=== PATIENT | male | born 1960 | race Caucasian/White ===

== ENCOUNTER 2017-09-25 17:31 | Emergency (ER) | payer SELFPAY ==
[2017-09-25 17:32] VITALS: BP 152/84; PULSE 75; RESP 16; TEMP 98.8; O2SAT 99
--- NOTE | 2017-09-25 18:29 | RADRPT ---
EXAM DATE/TIME: 09/25/2017 18:07 [place] COMPARISON: No previous studies available for comparison. INDICATIONS : Cough, sneezing and flu symptoms. MEDICAL HISTORY : None. SURGICAL HISTORY : Coronary artery stent. ENCOUNTER: Initial ACUITY: 1 day PAIN SCORE: 0/10 LOCATION: Bilateral chest FINDINGS: PA and lateral views of the chest demonstrate the lungs to be symmetrically aerated without evidence of mass, infiltrate or effusion. The cardiomediastinal contours are unremarkable. Osseous structure s are intact. CONCLUSION: 1. No active disease. Stephen Sebastian MD on September 25, 2017 at 18:25 Board Certified Radiologist. This report was verified electronically.
[2017-09-25 18:45] LABS: AUTOMATED NEUTROPHIL # 2.2 TH/MM3 (1.8-7.7); BASOPHIL % 0.8 % (0.0-2.0); EOSINOPHIL # 0.2 TH/MM3 (0-0.4); HEMATOCRIT 47.1 % (39.0-51.0); HEMOGLOBIN 16.8 GM/DL (13.0-17.0); LYMPH % 37.9 % (9.0-44.0); LYMPHOCYTE # 1.9 TH/MM3 (1.0-4.8); MEAN CELL VOLUME 92.4 FL (80.0-100.0); MEAN CORPUSCULAR HEMOGLOBIN 32.9 PG (27.0-34.0); MEAN CORPUSCULAR HGB CONC 35.6 % (32.0-36.0); MEAN PLATELET VOLUME 8.5 FL (7.0-11.0); MONO % 14.4 % (0.0-8.0); MONOCYTE # 0.7 TH/MM3 (0-0.9); NEUT % 43.9 % (16.0-70.0); PLATELET COUNT 169 TH/MM3 (150-450); RED BLOOD COUNT 5.09 MIL/MM3 (4.50-5.90); RED CELL DISTRIBUTION WIDTH 13.7 % (11.6-17.2); WHITE BLOOD COUNT 5.1 TH/MM3 (4.0-11.0)
[2017-09-25 19:01] LABS: INTERNATIONAL NORMALIZED RATIO 1.1 RATIO; PROTHROMBIN TIME - PATIENT 10.7 SEC (9.8-11.6)
[2017-09-25 19:02] LABS: ALBUMIN 3.4 GM/DL (3.4-5.0); AST (GOT) 49 U/L (15-37); BICARBONATE 24.1 MEQ/L (21.0-32.0); BLOOD UREA NITROGEN 13 MG/DL (7-18); CHLORIDE 106 MEQ/L (98-107); CREATININE 1.03 MG/DL (0.60-1.30); GLOMERULAR FILTRATION RATE 75 ML/MIN (>89); GLUCOSE,RANDOM 146 MG/DL (74-106); MAGNESIUM 1.9 MG/DL (1.5-2.5); SODIUM (NA) 138 MEQ/L (136-145)
[2017-09-25 19:10] LABS: ALKALINE PHOSPHATASE 119 U/L (45-117); ALT (GPT) 88 U/L (12-78); TOTAL BILIRUBIN ADULT 0.3 MG/DL (0.2-1.0); TOTAL PROTEIN 7.3 GM/DL (6.4-8.2); TROPONIN I LESS THAN 0.02 NG/ML (0.02-0.05)
--- NOTE | 2017-09-25 21:53 | PD ---
HPI Chief Complaint: Cold / Flu Symptoms Time Seen by Provider: 17:38 Travel History International Travel<30 days: No Contact w/Intl Traveler<30days: No Traveled to known affect area: No History of Present Illness HPI This report is in ERROR Please disregard this report and all prior copies ! This report is in ERROR Please disregard this report and all prior copies ! This report is in ERROR Please disregard this report and all prior copies ! PFSH Social History Tobacco Use: No Allergies-Medications (Allergen,Severity, Reaction): Coded Allergies: No Known Allergies (Unverified , 09/25/17) Reported Meds & Prescriptions Reported Meds & Active Scripts Active Reported Buspirone (Buspirone HCl) 5 Mg Tab 5 Mg PO BID [Wellbutrin] Physical Exam Narrative This report is in ERROR Please disregard this report and all prior copies ! This report is in ERROR Please disregard this report and all prior copies ! This report is in ERROR Please disregard this report and all prior copies ! Data Data Last Documented VS Vital Signs Date Time Temp Pulse Resp B/P (MAP) Pulse Ox O2 Delivery O2 Flow Rate FiO2 09/25/17 23:45 09/25/17 22:07 76 18 09/25/17 22:00 98 Room Air 09/25/17 17:32 98.8 Orders Orders Ckmb (Isoenzyme) Profile (09/25/17 17:42) Complete Blood Count With Diff (09/25/17 17:42) Comprehensive Metabolic Panel (09/25/17 17:42) Magnesium (Mg) (09/25/17 17:42) Prothrombin Time / Inr (Pt) (09/25/17 17:42) Act Partial Throm Time (Ptt) (09/25/17 17:42) Troponin I (09/25/17 17:42) Chest, Pa & Lat (09/25/17 17:42) Electrocardiogram (09/25/17 ) Influenzae A/B Antigen (09/25/17 22:17) Tylenol (Acetaminophen) (09/25/17 22:17) Ed Discharge Order (09/25/17 23:17) Labs Laboratory Tests Test 09/25/17 17:53 White Blood Count 5.1 TH/MM3 Red Blood Count 5.09 MIL/MM3 Hemoglobin 16.8 GM/DL Hematocrit 47.1 % Mean Corpuscular Volume 92.4 FL Mean Corpuscular Hemoglobin 32.9 PG Mean Corpuscular Hemoglobin Concent 35.6 % Red Cell Distribution Width 13.7 % Platelet Count 169 TH/MM3 Mean Platelet Volume 8.5 FL Neutrophils (%) (Auto) 43.9 % Lymphocytes (%) (Auto) 37.9 % Monocytes (%) (Auto) 14.4 % Eosinophils (%) (Auto) 3.0 % Basophils (%) (Auto) 0.8 % Neutrophils # (Auto) 2.2 TH/MM3 Lymphocytes # (Auto) 1.9 TH/MM3 Monocytes # (Auto) 0.7 TH/MM3 Eosinophils # (Auto) 0.2 TH/MM3 Basophils # (Auto) 0.0 TH/MM3 CBC Comment DIFF FINAL Differential Comment Prothrombin Time 10.7 SEC Prothromb Time International Ratio 1.1 RATIO Activated Partial Thromboplast Time 28.0 SEC Blood Urea Nitrogen 13 MG/DL Creatinine 1.03 MG/DL Random Glucose 146 MG/DL Total Protein 7.3 GM/DL Albumin 3.4 GM/DL Calcium Level 9.0 MG/DL Magnesium Level 1.9 MG/DL Alkaline Phosphatase 119 U/L Aspartate Amino Transf (AST/SGOT) 49 U/L Alanine Aminotransferase (ALT/SGPT) 88 U/L Total Bilirubin 0.3 MG/DL Sodium Level 138 MEQ/L Potassium Level 3.4 MEQ/L Chloride Level 106 MEQ/L Carbon Dioxide Level 24.1 MEQ/L Anion Gap 8 MEQ/L Estimat Glomerular Filtration Rate 75 ML/MIN Total Creatine Kinase 73 U/L Troponin I LESS THAN 0.02 NG/ML Acetaminophen Level LESS THAN 2.0 MCG/ML MDM Medical Decision Making Medical Screen Exam Complete: Yes Emergency Medical Condition: Yes Differential Diagnosis This report is in ERROR Please disregard this report and all prior copies ! This report is in ERROR Please disregard this report and all prior copies ! This report is in ERROR Please disregard this report and all prior copies ! Narrative Course This report is in ERROR Please disregard this report and all prior copies ! This report is in ERROR Please disregard this report and all prior copies ! This report is in ERROR Please disregard this report and all prior copies ! Inna Araujo Ann [employer] Sep 25, 2017 21:53
[2017-09-25 22:00] VITALS: BP 119/82; PULSE 80; RESP 16; O2SAT 98
[2017-09-25] MEDS ORDERED: WELLBUTRIN (22:17)
[2017-09-25] MEDS ORDERED: BUSP5TAB PO (22:17)
--- NOTE | 2017-09-25 22:58 | PD ---
HPI Chief Complaint: Cold / Flu Symptoms Time Seen by Provider: 22:04 Travel History International Travel<30 days: No Contact w/Intl Traveler<30days: No Traveled to known affect area: No History of Present Illness HPI 57-year-old male presents to emergency department complaining of "sickness" since . Patient states that he has had body aches, cough, sneezing and chest pain since . States he has also felt feverish with accompanying chills with this has been well controlled with Tylenol. Patient says that his chest pain is located in the chest without radiation and described as mild. Patient has a history of ulcerative colitis, depression, and ADHD. PFSH Past Medical History ADHD: Yes Anxiety: Yes Depression: Yes Cardiac Catheterization: Yes Diminished Hearing: No Medical other: Yes (ULCERATIVE COLITIS) Influenza Vaccination: No Past Surgical History Abdominal Surgery: Yes (HERNIA) Social History Alcohol Use: Yes (occasionally) Tobacco Use: Yes (1 ppd) Substance Use: No Allergies-Medications (Allergen,Severity, Reaction): Coded Allergies: No Known Allergies (Unverified , 09/25/17) Reported Meds & Prescriptions Reported Meds & Active Scripts Active Reported Buspirone (Buspirone HCl) 5 Mg Tab 5 Mg PO BID [Wellbutrin] Review of Systems Except as stated in HPI: all other systems reviewed are Neg Physical Exam Narrative GENERAL: Well developed well nourished in no apparent distress SKIN: Focused skin assessment warm/dry. HEAD: Atraumatic. Normocephalic. EYES: Pupils equal and round. No scleral icterus. No injection or drainage. ENT: No nasal bleeding or discharge. Mucous membranes pink and moist. NECK: Trachea midline. No JVD. CARDIOVASCULAR: Regular rate and rhythm. No murmur appreciated. RESPIRATORY: No accessory muscle use. Clear to auscultation. Breath sounds equal bilaterally. GASTROINTESTINAL: Abdomen soft, non-tender, nondistended. Hepatic and splenic margins not palpable. MUSCULOSKELETAL: No obvious deformities. No clubbing. No cyanosis. No edema. No tenderness to palpation of chest wall NEUROLOGICAL: Awake and alert. No obvious cranial nerve deficits. Motor grossly within normal limits. Normal speech. PSYCHIATRIC: Appropriate mood and affect; insight and judgment normal. Data Data Last Documented VS Vital Signs Date Time Temp Pulse Resp B/P (MAP) Pulse Ox O2 Delivery O2 Flow Rate FiO2 09/25/17 23:45 09/25/17 22:07 76 18 09/25/17 22:00 98 Room Air 09/25/17 17:32 98.8 Orders Orders Ckmb (Isoenzyme) Profile (09/25/17 17:42) Complete Blood Count With Diff (09/25/17 17:42) Comprehensive Metabolic Panel (09/25/17 17:42) Magnesium (Mg) (09/25/17 17:42) Prothrombin Time / Inr (Pt) (09/25/17 17:42) Act Partial Throm Time (Ptt) (09/25/17 17:42) Troponin I (09/25/17 17:42) Chest, Pa & Lat (09/25/17 17:42) Electrocardiogram (09/25/17 ) Influenzae A/B Antigen (09/25/17 22:17) Tylenol (Acetaminophen) (09/25/17 22:17) Ed Discharge Order (09/25/17 23:17) Labs Laboratory Tests Test 09/25/17 17:53 White Blood Count 5.1 TH/MM3 Red Blood Count 5.09 MIL/MM3 Hemoglobin 16.8 GM/DL Hematocrit 47.1 % Mean Corpuscular Volume 92.4 FL Mean Corpuscular Hemoglobin 32.9 PG Mean Corpuscular Hemoglobin Concent 35.6 % Red Cell Distribution Width 13.7 % Platelet Count 169 TH/MM3 Mean Platelet Volume 8.5 FL Neutrophils (%) (Auto) 43.9 % Lymphocytes (%) (Auto) 37.9 % Monocytes (%) (Auto) 14.4 % Eosinophils (%) (Auto) 3.0 % Basophils (%) (Auto) 0.8 % Neutrophils # (Auto) 2.2 TH/MM3 Lymphocytes # (Auto) 1.9 TH/MM3 Monocytes # (Auto) 0.7 TH/MM3 Eosinophils # (Auto) 0.2 TH/MM3 Basophils # (Auto) 0.0 TH/MM3 CBC Comment DIFF FINAL Differential Comment Prothrombin Time 10.7 SEC Prothromb Time International Ratio 1.1 RATIO Activated Partial Thromboplast Time 28.0 SEC Blood Urea Nitrogen 13 MG/DL Creatinine 1.03 MG/DL Random Glucose 146 MG/DL Total Protein 7.3 GM/DL Albumin 3.4 GM/DL Calcium Level 9.0 MG/DL Magnesium Level 1.9 MG/DL Alkaline Phosphatase 119 U/L Aspartate Amino Transf (AST/SGOT) 49 U/L Alanine Aminotransferase (ALT/SGPT) 88 U/L Total Bilirubin 0.3 MG/DL Sodium Level 138 MEQ/L Potassium Level 3.4 MEQ/L Chloride Level 106 MEQ/L Carbon Dioxide Level 24.1 MEQ/L Anion Gap 8 MEQ/L Estimat Glomerular Filtration Rate 75 ML/MIN Total Creatine Kinase 73 U/L Troponin I LESS THAN 0.02 NG/ML Acetaminophen Level LESS THAN 2.0 MCG/ML MDM Medical Decision Making Medical Screen Exam Complete: Yes Emergency Medical Condition: Yes Differential Diagnosis Influenza A, influenza B, upper respiratory infection, viral syndrome Narrative Course 57-year-old male presents to emergency department complaining of "sickness" since . Patient states that he has had body aches, cough, sneezing and chest pain since . States he has also felt feverish with accompanying chills with this has been well controlled with Tylenol. Patient says that his chest pain is located in the chest without radiation and described as mild. Patient has a history of ulcerative colitis, depression, and ADHD. Vital signs stable. Physical exam findings reveal a non toxic-appearing 57y male in no acute distress. Occasional dry cough. Lungs CTAB without wheeze. EKG demonstrates Sinus rhythm without ST elevations or depressions. CBC & BMP Diagram 09/25/17 17:53 Total Protein 7.3, Albumin 3.4, Calcium Level 9.0, Magnesium Level 1.9, Alkaline Phosphatase 119 H, Aspartate Amino Transf (AST/SGOT) 49 H, Alanine Aminotransferase (ALT/SGPT) 88 H, Total Bilirubin 0.3 Cardiac enzymes negative. Low suspicion of cardiac involvement. Pt has influenza B. Advised of conservative care. Since patient symptoms started , I do not believe that he would benefit from Tamiflu. I explained the importance of proper hydration and nutrition. Advised to remain active to reduce the possibility of developing pneumonia or other lung disease. Pt to continue Tylenol as needed. Pt states understanding and will comply. Diagnosis Primary Impression: Influenza B Referrals: Primary Care Physician Additional Instructions: you may take Tylenol for your aches and pains per package instructions. Continue to hydrate and have proper nutrition. Follow up with your primary care physician within 2-3 days. If your symptoms persist or worsen, return to the emergency department. Disposition: 01 DISCHARGE HOME Condition: Stable Amber Leos Sep 25, 2017 22:58
--- NOTE | 2017-09-26 17:33 | EKG ---
Date Performed: 09/25/2017 Time Performed: 22:19:44 PTAGE: 57 years EKG: Sinus rhythm NORMAL ECG NO PREVIOUS TRACING DOCTOR: Destiny Robertson Interpretating Date/Time 09/26/2017 17:26:06
== END 2017-09-25 23:46 | disposition home or self-care (01) ==
LOC: NEPC 17:31
DX: J10.1 Influenza due to other identified influenza virus with other respiratory manifestations (principal); F17.200 Nicotine dependence, unspecified, uncomplicated; F32.9 Major depressive disorder, single episode, unspecified; F90.9 Attention-deficit hyperactivity disorder, unspecified type; F41.9 Anxiety disorder, unspecified; K51.90 Ulcerative colitis, unspecified, without complications; Z79.899 Other long term (current) drug therapy
CPT/HCPCS: 71046; 80053; 80307; 82550; 83735; 84484; 85025; 85610; 85730; 87804; 93005